=== PATIENT | female | born 1965 | race Caucasian/White ===

== ENCOUNTER 2021-08-29 09:00 | Outpatient (CLI) | payer OTHER | END 2021-08-29 09:15 | disposition home or self-care (01) | LOC: PPH VACUNA 09:00 | PROVIDERS: ATTEND Emergency Medicine Pediatric Emergency Medicine | DX: Z23 Encounter for immunization (principal) ==

== ENCOUNTER 2024-05-13 09:04 | Outpatient (CLI) | payer OTHER | END 2024-05-13 09:09 | disposition home or self-care (01) | LOC: NUCLEAR 09:04 | PROVIDERS: ATTEND Internal Medicine | DX: Q21.19 Other specified atrial septal defect (principal) ==